=== PATIENT | female | born 1975 | race Caucasian/White ===

== ENCOUNTER 2018-07-31 07:40 | Emergency (ER) | payer OTHER ==
[~2018-07-31] VITALS: Ht 175.3 cm; Wt 74.8 kg
[2018-07-31] MEDS ORDERED: GABA300 PO (07:52)
[2018-07-31] MEDS ORDERED: Percocet 5-3251 EACH PO (08:31)
== END 2018-07-31 09:01 | disposition home or self-care (01) ==
LOC: ER 07:40
DX: S92.355A Nondisplaced fracture of fifth metatarsal bone, left foot, initial encounter for closed fracture (principal); X50.9XXA Other and unspecified overexertion or strenuous movements or postures, initial encounter; Z88.5 Allergy status to narcotic agent; Z88.8 Allergy status to other drugs, medicaments and biological substances; Z88.1 Allergy status to other antibiotic agents; Z79.899 Other long term (current) drug therapy
CPT/HCPCS: 29515; 73630; 99283-25